=== PATIENT | female | born 1995 | race Caucasian/White ===

== ENCOUNTER 2023-02-20 00:58 | Inpatient (IN) ==
[2023-02-20] MEDS ORDERED: D5 1/2 NS 1,000 ML 1,000 ML IV ONE (01:03)
[2023-02-20] MEDS: D5 1/2 NS 1,000 ML 1,000 ML IV SCH ×3 (01:11→18:15)
[2023-02-20 01:21] LABS: AMNISURE ROM TEST THERE IS A RUPTURE (NO RUPTURE)
[2023-02-20 01:26] LABS: BASOPHILS # (AUTO) 0.1 X10^3/uL (0.0-0.1); BASOPHILS % (AUTO) 0.8 % (0.2-1.0); EOSINOPHILS # (AUTO) 0.1 x10^3/uL (0.0-0.2); EOSINOPHILS % (AUTO) 0.9 % (0.9-2.9); HEMATOCRIT 32.1 % (36.0-47.0); HEMOGLOBIN 10.4 g/dL (12.0-16.0); LYMPHOCYTES # (AUTO) 2.3 X10^3/uL (1.3-2.9); LYMPHOCYTES % (AUTO) 30.9 % (21.0-51.0); MEAN CORPUSCULAR HEMOGLOBIN 25.4 pg (27.0-34.0); MEAN CORPUSCULAR HGB CONC 32.6 g/dL (33.0-35.0); MONOCYTES # (AUTO) 0.5 x10^3/uL (0.3-0.8); MONOCYTES % (AUTO) 7.3 % (0.0-13.0); NEUTROPHILS # (AUTO) 4.5 x10^3/uL (2.2-4.8); NEUTROPHILS % (AUTO) 60.1 % (42.0-75.0); PLATELET COUNT 206 X10^3/uL (150.0-450.0); RED BLOOD COUNT 4.11 X10^6/uL (3.5-5.4); RED CELL DISTRIBUTION WIDTH 15.6 % (11.6-16.5); WHITE BLOOD COUNT 7.5 X10^3/uL (3.6-10.0)
[2023-02-20 01:38] LABS: ALANINE AMINOTRANSFERASE 11 Units/L (12-78); ALBUMIN 2.4 g/dL (3.4-5.0); ALKALINE PHOSPHATASE 259 Units/L (46-116); ASPARTATE AMINO TRANSFERASE 16 Units/L (15-37); BLOOD UREA NITROGEN 6 mg/dL (7-18); CALCIUM 7.6 mg/dL (8.5-10.1); CARBON DIOXIDE 21.7 mmol/L (21-32); CHLORIDE 100 mmol/L (98-107); COR CA(FOR HYPOALB) 8.9 mg/dL (8.5-10.1); CREATININE 0.67 mg/dL (0.55-1.02); GLUCOSE 85 mg/dL (65-99); POTASSIUM 3.7 mmol/L (3.5-5.1); SODIUM 134 mmol/L (136-145); TOTAL PROTEIN 6.9 g/dL (6.4-8.2); eGFR NON BLACK RACES > 60 (>60)
[2023-02-20 01:50] VITALS: BMI 35.1
[2023-02-20] MEDS ORDERED: PITOCIN ONE (01:53)
[2023-02-20] MEDS ORDERED: BETADINE SOLN ONE (01:53)
[2023-02-20] MEDS ORDERED: D5 1/2 NS 1,000 mL + PITOCIN 20 UNITS/L IV 20 UNITS/1,000 ML BAG IV ONE (01:54)
[2023-02-20] MEDS: D5 1/2 NS 1,000 ML 1,000 ML with PITOCIN 20 UNITS IV SCH ×6 (02:30→21:52)
[2023-02-20] MEDS ORDERED: MOTRIN TAB 800 MG PO PRN (02:48)
[2023-02-20 06:38] LABS: HEMATOCRIT 29.8 % (36.0-47.0); HEMOGLOBIN 9.6 g/dL (12.0-16.0)
[2023-02-20] MEDS ORDERED: CONSULT PHARMACY - POTASSIUM & MAGNESIUM XX SCH (09:00)
[2023-02-21] MEDS: D5 1/2 NS 1,000 ML 1,000 ML with PITOCIN 20 UNITS IV SCH ×2 (03:39)
[2023-02-21] MEDS: D5 1/2 NS 1,000 ML 1,000 ML IV SCH ×2 (03:39→10:47)
[2023-02-21] MEDS ORDERED: DEPO-PROVERA CONTRACEPTIVE INJ IM ONE ×2 (07:20→10:17)
--- NOTE | 2023-02-21 07:29 | NOTE.SOAPO ---
SOAP NOTE MANAGER OF CARE Note for Day of Date of Exam: 02/21/23 Subjective Data Subjective: No complaint. Decreasing lochia. Tolerating regular diet, no N/V. Ambulating well. Breast feeding well. Objective Data Objective Data: CV= RRR no MRG Lungs=CTA Bilaterally Abd=(+) BS, soft, NTND. Fundus firm, NT, at level of umbilicus. Ext=No edema, NT, no cords. Assessment Assessment: Post day #2, of twins--doing well Rh-, s/p RhoGAM Plan (1) Vaginal delivery: Plan: Return to office in 4-6 weeks (pre-op for LSC BTL then if desired) Pelvic rest for 6 weeks Prescriptions to pharmacy D/C home Depo Provera for control before leaving hospital
[2023-02-21 09:05] VITALS: BP 110/67; PULSE 80; RESP 20; TEMP 98; O2SAT 98
== END 2023-02-21 14:20 | disposition home or self-care (01) | DRG 805 ==
LOC: ER 00:59 → LD 01:47 → MED/SURG 04:10
PROVIDERS: ADMIT Specialist; ATTEND Specialist
DX: O36.0930 Maternal care for other rhesus isoimmunization, third trimester, not applicable or unspecified; Z3A.36 36 weeks gestation of pregnancy; O60.14X0 Preterm labor third trimester with preterm delivery third trimester, not applicable or unspecified; O99.613 Diseases of the digestive system complicating pregnancy, third trimester; Z37.2 Twins, both liveborn; O30.033 Twin pregnancy, monochorionic/diamniotic, third trimester